=== PATIENT | female | born 1985 | race Caucasian/White ===

== ENCOUNTER 2025-08-17 11:58 | Day surgery (SDC) | payer BC, SELFPAY ==
[2025-08-17] VITALS (13 sets, daily range): BP systolic 108–148; BP diastolic 65–106; BMI 29.3
--- NOTE | 2025-08-17 06:43 | ED.GENMED ---
History of Present Illness
General
Chief Complaint: Abdominal Pain
Source: patient
Exam Limitations: none
Time Seen by Provider: 08/17/25 06:27
History of Present Illness
History of Present Illness:
40yoF with a history of anxiety and depression presenting for evaluation of abdominal pain. Symptoms initially began around 8 PM last night with a discomfort in her upper abdomen. She was also feeling nauseous and had several episodes of vomiting.
She was in and out of the bathroom several times. She was eventually able to go to sleep but woke up at 1 AM with sharp pain in her right lower quadrant. Pain has been constant since then and is gradually worsening. Pain is worse with movement.
She has not taken anything [id number]. She is worried that she has appendicitis. She has a prior history of ovarian cyst and states this feels different. She denies any fevers, constipation, diarrhea, dysuria, chest pain. Prior abdominal
surgeries include multiple sections and a tummy tuck.
Phy Exam
General Physical Exam
General Presentation: well appearing and no apparent distress
General Skin: warm and dry
General Habitus: normal
General Mental: alert
ENT Exam
ENT Exam: normocephalic
Cardiovascular Exam
Cardiovascular Exam: regular rate/rhythm and no murmur
Pulmonary Exam
Pulmonary Exam: lungs clear, no respiratory distress, no rales, no crackles, no rhonchi and no wheezing
Gastrointestinal Exam
Gastrointestinal Exam: soft, non distended and other (+Focal tenderness in RLQ. Abdomen soft, non-distended. No rebound or guarding.)
Neurological Exam
Neurological Exam: alert
Dinesh Coma Scale
Eye Opening: Spontaneous
Verbal Response: Oriented
Motor Response: Obeys Commands
GCS Total Score: 15
Skin Exam
Skin Exam: normal color and warm/dry
Psychiatric Exam
Psychiatric Exam: normal mood/affect
Course
Orders/Labs/Results
Orders:
Orders
08/17/25 06:41
0.9% Sodium Chloride 1000 ml [Nss] 1,000 ml IV BOLUS
Ketorolac [Toradol] 15 mg IV NOW STA
08/17/25 06:42
Urinalysis Reflex To Culture Urgent
Test Result ONCE
08/17/25 06:44
CT Abd/pelvis W Iv Cont Urgent
Comment:
Reason For Exam: RLQ pain
08/17/25 06:45
Complete Blood Count/With Diff Urgent
Comprehensive Metabolic Panel Urgent
HCG, Serum Qualitative Screen Urgent
Lipase Urgent
08/17/25 08:08
Piperacillin/Tazo 4.5 Gram [Zosyn] 4.5 gram in 100 ml IV NOW
Abnormal Lab Results
08/17/25
06:45
WBC 15.1 H 10^3/uL
(4.8-10.8)
RBC 4.18 L 10^6/uL
(4.20-5.40)
Hct 35.1 L %
(37.0-47.0)
Abs Immat Gran (auto) 0.1 H 10^3/uL
(0-0.05)
Absolute Neuts (auto) 13.4 H 10^3/uL
(1.4-6.5)
Absolute Lymphs (auto) 0.9 L 10^3/uL
(1.2-3.4)
Absolute Monos (auto) 0.7 H 10^3/uL
(0.1-0.6)
Neutrophils % 88.4 H %
(42.2-75.2)
Lymphocytes % 5.9 L %
(20.5-51.1)
Glucose 141 H mg/dl
(70-99)
08/17/25 06:45
08/17/25 06:45
Vital Signs
Initial and Last Documented VS:
Initial Vital Signs
Temp Pulse Resp BP Pulse Ox
98.2 F 94 20 146/106 98
08/17/25 06:22 08/17/25 06:22 08/17/25 06:22 08/17/25 06:22 08/17/25 06:22
Last Documented Vital Signs
Temp Pulse Resp BP Pulse Ox
98.1 F 84 18 148/92 98
08/17/25 08:06 08/17/25 06:46 08/17/25 06:46 08/17/25 06:46 08/17/25 06:46
MDM/Problems Addressed
Differential Diagnosis Includes:
40yoF here with RLQ pain. Started with upper abd discomfort last night. Woke up with RLQ pain at 1am that is worsening. Associated with n/v. She is mildly hypertensive with otherwise stable vitals. She is non-toxic appearing. No signs of peritonitis
on abdominal exam. Differential diagnosis includes but is not limited to: appendicitis, ovarian cyst, kidney stone, biliary colic
Initial ED plan: Check abdominal labs, HCG, UA, and CT abdomen. IV Toradol and fluid bolus for symptoms.
*Pulse Oximetry
SaO2: 98
Oxygen Mode of Delivery: Room air
Patient hypoxic: no
*Critical Care Note
Total Time (30-74mins, 75-104mins- exclusive of procedures): Not Applicable
Update Note
Update Note:
CT shows appendicitis without evidence of perforation or abscess. White count elevated at 15.1. General surgery consulted. IV Zosyn ordered and patient admitted for further management.
ED Attending Note
-
Portions of this chart may have been created with voice recognition software.� Occasional wrong word or��sound alike� substitutions may have occurred due to the inherent limitations of voice recognition software.
Discharge Plan
Departure
Patient Disposition: Admit
Date of Disposition: 08/17/25
Time of Disposition: 08:09
Presentation/result/management discussed w/ accepting MD/DO: Dr. Feliciano
Discharge Problem:
Acute appendicitis
Prescriptions:
No Action
bupropion HCl [Wellbutrin SR] 150 mg Tablet Sustained-Release 12 Hr
150 mg PO DAILY
Referrals:
Stewart Carlin DO [Family Provider, Family Practice]
Interventions
Interventions:
*Risk Screen - Suicide Last Done: 08/17/25 06:22
*General Assessment Last Done: 08/17/25 06:48
*Neglect/Abuse Screening Last Done: 08/17/25 06:22
*ED- Fall Risk Assessment Last Done: 08/17/25 06:48
*ED COVID-19 Vaccine History Last Done: 08/17/25 06:48
*ED Influenza Vaccine History Last Done: 08/17/25 06:48
XH-Gcbgyp-Bjtanxlzez Assessment Last Done: 08/17/25 06:49
Discharge Date and Time
Print Language: PANAMANIAN
[2025-08-17 06:57] LABS: Hematocrit 35.1 % (37.0-47.0); Hemoglobin 12.0 g/dL (12.0-16.0); Mean Corp Hgb Conc. 34.2 g/dL (33.0-37.0); Mean Corpuscular Volume 84.0 fL (81.0-99.0); Nucleated Red Blood Cells % 0 %; Platelet Count 376 10^3/uL (130-400); Red Cell Dist. Width 12.1 % (11.5-14.5)
[2025-08-17] MEDS: NSS 1000 IV (07:00)
[2025-08-17] MEDS: TORADOL 15 MG IV (07:00)
[2025-08-17 07:05] LABS: HCG, Serum Qualitative Screen Negative
[2025-08-17 07:30] LABS: ALT (SGPT) 20 U/L (0-35); AST (SGOT) 19 U/L (14-36); Albumin 4.9 g/dl (3.5-5.0); Alkaline Phosphatase 64 U/L (38-126); Blood Urea Nitrogen 13 mg/dl (7-17); Calcium 9.7 mg/dl (8.4-10.2); Carbon Dioxide 22 mmol/L (22-30); Chloride 106 mmol/L (98-107); Estimated Creatinine Clearance > 125 ml/min; Glucose 141 mg/dl (70-99); Lipase 69 U/L (23-300); Potassium 4.3 mmol/L (3.5-5.1); Sodium 139 mmol/L (135-145); Total Protein 7.9 g/dl (6.3-8.2); eGFR > 60.00
[2025-08-17] MEDS: ZOSYN 100 IV (08:16)
--- NOTE | 2025-08-17 08:26 | HPS.HSE ---
Family Physician
-
Family Physician: Stewart Carlin
Chief Complaint
-
Abdominal pain
History of Present Illness
Patient is a 40 yo F with a PMH of depression/anxiety, s/p , and s/p abdominoplasty who presents with 12 hours of RLQ abdominal pain. She states that she initially had some generalized lower abdominal discomfort yesterday evening.
Overnight she was awakened to more severe focal pain in the RLQ. Associated nausea, but no vomiting. No fevers or chills. No fluctuations from a GI standpoint. No chronic GI issues. No prior colonoscopy.
Medical History
Past Medical History
Past Medical History: Reports Psychiatric (Depression/anxiety)
Past Surgical History: Reports and Other (Abdominoplasty)
Social History
Tobacco: Non-smoker
Alcohol: Occasional
Drug: None
Family History
Family History: Not pertinent
Allergies / Home Medications
Allergies reflects when Allergies were last updated in [employer].
Home Medications with original date entered in [employer]
Allergy/Medication List:
NKDA
Review of Systems
-
A 12 point ROS was completed and negative except as noted: Yes
Physical Exam
Vital Signs
Vital Signs
Temp Pulse Resp BP Pulse Ox
98.1 F 84 18 148/92 98
08/17/25 08:06 08/17/25 06:46 08/17/25 06:46 08/17/25 06:46 08/17/25 06:46
Physical Exam
General: Well Developed, Well Nourished and No Apparent Distress
HEENT: NormoCephalic and Anicteric
Respiratory: Non Labored Respirations
Cardiac: Regular Rhythm
GI: Soft, Non Distended, Tender (RLQ) and Other (Nonperitoneal, prior incisions well-healed)
Musculoskeletal: No Edema
Skin: Warm and Dry
Neuro: Nonfocal/grossly intact
Laboratory Results
-
08/17/25 06:45
08/17/25 06:45
Laboratory Results
Total Bilirubin 0.7 mg/dl (0.2-1.3) 08/17/25 06:45
AST 19 U/L (14-36) 08/17/25 06:45
ALT 20 U/L (0-35) 08/17/25 06:45
Alkaline Phosphatase 64 U/L (38-126) 08/17/25 06:45
Lipase 69 U/L (23-300) 08/17/25 06:45
Data Reviewed
-
CT Scan: Image Personally Visualized and interpreted and Report Reviewed by me
Lab Data: Labs Reviewed by me
Impression/Plan
-
IMPRESSION:
Patient is a 40 yo F p/w acute appendicitis
The natural history and pathophysiology of appendicitis was discussed. Anatomy was reviewed. CT scan imaging as a relates to her appendix was reviewed. Options for management including medical management with antibiotics versus surgical
management with appendectomy were considered and discussed. The pros and cons of both approaches was discussed. Specifically, we discussed failure of medical management and future episodes of appendicitis versus surgical risks. Recommend and plan
for appendectomy.
Plan for a laparoscopic appendectomy. The procedure itself, as well as the risks, benefits, and alternatives was discussed. Specifically, we discussed the risks of bleeding, infection, injury to surrounding structures (bowel), staple line leak,
need for open procedure. Typical postprocedural recovery was discussed. All questions answered. Consent signed.
PLAN:
-- Laparoscopic appendectomy
-- NPO, IVF
-- Abx: Zosyn
-- Dispo pending operatiev findings and recovery from anesthesia
--- NOTE | 2025-08-17 08:30 | W.SUR.PREOP ---
Pre-Operative Surgical Note
-
I have examined this patient prior to the performance of the scheduled procedure.
The patient's condition is unchanged from the time of the current History and
Physical and the patient is able to undergo the scheduled procedure.
[2025-08-17 09:49] LABS: Urine Character Clear (Clear)
[2025-08-17 10:13] LABS: Urine Red Blood Cell 0-2 /HPF (0-2)
--- NOTE | 2025-08-17 10:20 | EDRN ---
Report given to KING Garrido in the OR. Patient taken to OR on stretcher by electrical test technician.
--- NOTE | 2025-08-17 11:44 | W.IMMPOSTOP ---
Surgical Immed Post Op Note
-
Primary Surgeon: Jodie
Assisting Surgeon: None
Pre-op Diagnosis: Acute appendicitis
Post-op Diagnosis: Acute appendicitis
Procedure Performed: Laparoscopic appendectomy
Anesthesia Type: General
Specimen / Cultures:
1. Appendix
Estimated Blood Loss: 3 cc
Complications: None
Operative Findings:
1. Acutely inflamed distended appendix, no perforation, turbid fluid
2. Mesentery taken with Ligasure, base with bernardo load stapler
== END 2025-08-17 13:40 | disposition home or self-care (01) ==
LOC: SDS 11:58
PROVIDERS: Physician Assistant; ATTENDING PHYSICIAN Surgery; EMERGENCY PHYSICIAN Emergency Medicine; FAMILY PHYSICIAN Family Medicine
DX: K35.80 Unspecified acute appendicitis (principal); K38.1 Appendicular concretions
CPT/HCPCS: 44970; 74177; 80053; 81003; 81015; 83690; 84703; 85025; 88304; 96361; 96365; 96375; 99285; Q9967